=== PATIENT | female | born 2005 | race Asian ===

== ENCOUNTER 2023-12-07 15:50 | Observation (INO) ==
[2023-12-07 16:33] LABS: Urine Appearance Turbid; Urine Bilirubin Negative (Negative); Urine Blood Negative (Negative); Urine Color Yellow; Urine Glucose Negative (Negative); Urine Ketones 2+ (Negative); Urine Nitrite Negative (Negative); Urine Protein Trace (Negative); Urine Specific Gravity 1.021 (1.002-1.030); Urine Urobilinogen Negative (Negative)
[2023-12-07 16:49] LABS: Urine Bacteria Absent /HPF (Absent); Urine Red Blood Cell 3+(>10/hpf) /HPF (0-Trace); Urine Squamous Epithelial Cell Present /HPF (Absent); Urine White Blood Cell 3+(>20/hpf) /HPF (0-Trace)
[2023-12-07] MEDS: cefTRIAXone 1 gm/50 mL D5W 1 GM/50 ML BAG IV ONE (18:59)
[2023-12-07] MEDS: Lactated Ringers SEPSIS* BAG 1,850 ML IV ONE (19:01)
[2023-12-07 19:16] LABS: ABS Lymphocytes 1.2 10^3/uL (1.0-4.8); ABS Monocytes 0.6 10^3/uL (0.0-0.9); Eosinophil % 0.1 %; Hematocrit 43.1 % (35-45); Lymphocyte % 9.3 %; Mean Corpuscular Hemoglobin 28.7 pg (27-33); Mean Corpuscular Hgb Conc 32.4 g/dL (31-36); Mean Corpuscular Volume 88.5 fL (80-97); Mean Platelet Volume 10.7 fL (7.5-11.2); Platelet Count 149 10^3/uL (150-450); Red Blood Count 4.87 10^6/uL (3.63-4.92); Red Cell Distribution Width 14.5 % (12-17); White Blood Count 12.8 10^3/uL (3.8-11.8)
[2023-12-07 19:45] LABS: Albumin 4.4 g/dL (3.2-5.2); Albumin/Globulin Ratio 1.5 (1-3); C Reactive Protein 24.14 mg/L (<8.01); Calcium 8.9 mg/dL (8.6-10.3); Creatinine, Serum 0.78 mg/dL (0.51-0.95); Globulin 2.9 g/dL (2-4); Potassium 3.5 mmol/L (3.5-5.0); Total Bilirubin 1.1 mg/dL (0.2-1.0); Total Protein 7.3 g/dL (6.4-8.9); eGFR CKD-EPI 111.4 (>60)
[2023-12-07] MEDS: Iohexol 350 (CONTRAST) 500 ML MDV IV ONE (20:50)
[2023-12-08] MEDS ORDERED: Polyethylene Glycol 3350 17 GM PACKET PO PRN (00:18)
[2023-12-08] MEDS: Senna TAB 8.6 mg TAB PO SCH (01:01)
[2023-12-08 02:54] LABS: Magnesium 1.6 mg/dL (1.9-2.7)
[2023-12-08] MEDS: Magnesium Sulfate 2 gm BAG 2 GM/50 ML BAG IVPB ONE (04:28)
[2023-12-08 07:18] LABS: ABS Lymphocytes 0.8 10^3/uL (1.0-4.8); ABS Monocytes 0.6 10^3/uL (0.0-0.9); ABS Neutrophils 15.4 10^3/uL (1.5-7.6); ABS Nucleated RBC 0.01 10^3/ul; Hematocrit 39.8 % (35-45); Hemoglobin 13.2 g/dL (11.5-14.3); Lymphocyte % 4.8 %; Mean Corpuscular Hemoglobin 29.5 pg (27-33); Mean Corpuscular Hgb Conc 33.3 g/dL (31-36); Mean Corpuscular Volume 88.8 fL (80-97); Mean Platelet Volume 10.2 fL (7.5-11.2); Nucleated Red Blood Cells % 0.1 %/100WBC (0.0-0.8); Platelet Count 118 10^3/uL (150-450); Red Blood Count 4.49 10^6/uL (3.63-4.92); Red Cell Distribution Width 14.5 % (12-17); White Blood Count 16.8 10^3/uL (3.8-11.8)
[2023-12-08 07:50] LABS: Albumin 4.1 g/dL (3.2-5.2); Albumin/Globulin Ratio 1.6 (1-3); Creatinine, Serum 0.76 mg/dL (0.51-0.95); Globulin 2.6 g/dL (2-4); Magnesium 2.3 mg/dL (1.9-2.7); Potassium 3.9 mmol/L (3.5-5.0); Total Protein 6.7 g/dL (6.4-8.9)
[2023-12-08] MEDS: Polyethylene Glycol 3350 17 GM PACKET PO SCH (08:34)
[2023-12-08] MEDS: Lactated Ringers 1000 ml BAG 1,000 ML IV SCH (12:44)
[2023-12-08] MEDS: Lactulose 30 ml UDC PO SCH (12:44)
[2023-12-08] MEDS: cefTRIAXone 1 gm/50 mL D5W 1 GM/50 ML BAG IV ONE (14:29)
[2023-12-08] MEDS: cefTRIAXone 2 gm/50 mL D5W 2 GM/50 ML BAG IV SCH (14:56)
[2023-12-09 06:46] LABS: ABS Lymphocytes 1.6 10^3/uL (1.0-4.8); ABS Monocytes 1.1 10^3/uL (0.0-0.9); ABS Neutrophils 11.2 10^3/uL (1.5-7.6); Eosinophil % 0.2 %; Hematocrit 32.9 % (35-45); Hemoglobin 11.2 g/dL (11.5-14.3); Lymphocyte % 11.3 %; Mean Corpuscular Hemoglobin 29.6 pg (27-33); Mean Corpuscular Volume 87.3 fL (80-97); Mean Platelet Volume 10.7 fL (7.5-11.2); Platelet Count 104 10^3/uL (150-450); Red Blood Count 3.77 10^6/uL (3.63-4.92); White Blood Count 13.9 10^3/uL (3.8-11.8)
[2023-12-09 06:59] LABS: Calcium 8.2 mg/dL (8.6-10.3); Creatinine, Serum 0.63 mg/dL (0.51-0.95); Potassium 3.3 mmol/L (3.5-5.0); eGFR CKD-EPI 130.2 (>60)
[2023-12-09] MEDS: Potassium Chlor 20 meq TAB.ER PO ONE (09:31)
[2023-12-09] MEDS ORDERED: cefTRIAXone 1 gm/50 mL D5W 1 GM/50 ML BAG IV SCH (18:00)
[2023-12-10 09:04] LABS: ABS Lymphocytes 1.5 10^3/uL (1.0-4.8); ABS Monocytes 0.7 10^3/uL (0.0-0.9); ABS Neutrophils 6.1 10^3/uL (1.5-7.6); Eosinophil % 0.6 %; Hematocrit 34.4 % (35-45); Hemoglobin 11.5 g/dL (11.5-14.3); Lymphocyte % 18.2 %; Mean Corpuscular Hemoglobin 29.2 pg (27-33); Mean Corpuscular Hgb Conc 33.4 g/dL (31-36); Mean Corpuscular Volume 87.3 fL (80-97); Mean Platelet Volume 10.7 fL (7.5-11.2); Platelet Count 124 10^3/uL (150-450); Red Blood Count 3.94 10^6/uL (3.63-4.92); Red Cell Distribution Width 14.4 % (12-17); White Blood Count 8.4 10^3/uL (3.8-11.8)
[2023-12-10 09:47] LABS: Calcium 8.6 mg/dL (8.6-10.3); Creatinine, Serum 0.6 mg/dL (0.51-0.95); Magnesium 1.8 mg/dL (1.9-2.7); Potassium 3.9 mmol/L (3.5-5.0); eGFR CKD-EPI 131.7 (>60)
[2023-12-10] MEDS: Potassium Chlor 20 meq TAB.ER PO ONE (13:21)
[2023-12-10] MEDS: Magnesium Sulfate 2 gm BAG 2 GM/50 ML BAG IVPB ONE (13:56)
[2023-12-10] MEDS: Nystatin SUSPENSION 100,000 UNITS/ML UDC PO SCH (20:43)
[2023-12-11 06:50] LABS: Hematocrit 36.6 % (35-45); Hemoglobin 12.1 g/dL (11.5-14.3); Mean Corpuscular Hemoglobin 29.1 pg (27-33); Mean Platelet Volume 10.4 fL (7.5-11.2); Platelet Count 153 10^3/uL (150-450); Red Blood Count 4.16 10^6/uL (3.63-4.92); Red Cell Distribution Width 14.6 % (12-17); White Blood Count 7.5 10^3/uL (3.8-11.8)
[2023-12-11 07:19] LABS: Calcium 8.8 mg/dL (8.6-10.3); Creatinine, Serum 0.74 mg/dL (0.51-0.95); Magnesium 1.9 mg/dL (1.9-2.7); Potassium 4.3 mmol/L (3.5-5.0); eGFR CKD-EPI 118.7 (>60)
[2023-12-11 09:24] VITALS: BP 114/68
== END 2023-12-11 12:25 | disposition home or self-care (01) ==
LOC: EDHOLD 15:50 → ED 15:50 → SUATTDRO 12-08 00:15 → MEDTELE 12-08 03:18 → MED 12-10 00:13
PROVIDERS: ADMIT Internal Medicine; ATTEND Internal Medicine